=== PATIENT | female | born 1995 | race Caucasian/White ===

== ENCOUNTER 2018-08-31 17:29 | Emergency (ER) | payer MEDICAID ==
[~2018-08-31] VITALS: Ht 154.9 cm; Wt 40.8 kg
[2018-09-01 09:43] VITALS: BP 107/68
== END 2018-09-01 09:42 | disposition home or self-care (01) ==
LOC: EDBD 17:29 → ER 17:29
DX: G80.9 Cerebral palsy, unspecified (principal); Q93.51 Angelman syndrome